=== PATIENT | male | born 1975 | race Caucasian/White ===

== ENCOUNTER → 2019-09-17 | Outpatient (CLI) | payer OTHER | LOC: OD 16:13 | PROVIDERS: ATTEND Obstetrics & Gynecology | DX: R07.9 Chest pain, unspecified (principal) | CPT/HCPCS: 36415; 84484 ==

== ENCOUNTER → 2019-09-21 | Outpatient (CLI) | payer OTHER ==
--- NOTE | 2019-09-21 16:22 | RADIOLOGY REPORT (SQ) ---
EXAM DESCRIPTION: CAROTID DOPPLER COMPLETED DATE/TIME: 09/21/2019 3:44 pm REASON FOR STUDY: DIZZINESS E78.5 HYPERLIPIDEMIA, UNSPECIFIED R51 HEADACHE R42 DIZZINESS AND GIDD INESS COMPARISON: None. TECHNIQUE: Grayscale ultrasound, Doppler velocity and spectra, and color Doppler images acquired of the extra-cranial carotid and vertebral arteries. Images stored on PACS. LIMITATIONS: None. FINDINGS: RIGHT CAROTID CCA Velocities: Somewhat elevated velocity, peak systolic velocity 1.43 m/sec. ICA Velocities Peak systolic 1.09 m/s. End diastolic 0.41 m/s. Proximal ICA/CCA peak systolic ratio 0.8. Spectra normal. No significant plaque. LEFT CAROTID CCA Velocities: Somewhat elevated velocity, peak systolic velocity 1.67 m/sec. ICA Velocities Peak systolic 0.36 m/s. End diastolic 1.17 m/s. Proximal ICA/CCA peak systolic ratio 1.17. Spectra normal. No significant plaque. VERTEBRAL ARTERIES: Antegrade flow. Normal waveforms. SUBCLAVIAN ARTERIES: No finding. OTHER: No other significant finding. IMPRESSION: SOMEWHAT ELEVATED VELOCITIES IN THE COMMON CAROTID ARTERIES AND INTERNAL CAROTID ARTERIE S BUT NO PLAQUE OR HEMODYNAMICALLY SIGNIFICANT STENOSIS. COMMENT: Quality ID #[id number]: Velocity criteria are extrapolated from the diameter data as defined by t Society of Radiologists in Ultrasound Consensus Conference. Radiology 2003: 229; 340-346. TECHNICAL DOCUMENTATION: JOB ID: [id number] 2010 [employer]- All Rights Reserved Reading location - IP/workstation name: [email or web address]
== END ==
LOC: SP 14:34
PROVIDERS: ATTEND Obstetrics & Gynecology
DX: E78.5 Hyperlipidemia, unspecified (principal); R51 Headache; R42 Dizziness and giddiness
CPT/HCPCS: 93880